=== PATIENT | female | born 1995 | race Caucasian/White ===

== ENCOUNTER 2019-03-04 22:29 | Emergency (ER) | payer BC ==
[~2019-03-04] VITALS: Ht 160 cm; Wt 61.9 kg
[2019-03-04 22:33] VITALS: Ht 160 cm; Wt 61.9 kg
[2019-03-05 00:44] LABS: UA SPECIFIC GRAVITY >1.030 (1.005-1.035)
[2019-03-05 00:45] LABS: microscopic required? YES; urine erythrocyte TRACE (NEGATIVE)
[2019-03-05 01:35] VITALS: BP 109/53
== END 2019-03-05 01:35 | disposition home or self-care (01) ==
LOC: ED 22:29
PROVIDERS: Emergency Medicine
DX: R51 Headache (principal); M54.2 Cervicalgia; R11.0 Nausea; R20.2 Paresthesia of skin; R05 Cough; R10.10 Upper abdominal pain, unspecified; R35.0 Frequency of micturition; G43.909 Migraine, unspecified, not intractable, without status migrainosus; Z88.0 Allergy status to penicillin
CPT/HCPCS: J1200; J2765

== ENCOUNTER 2019-04-08 12:49 | Emergency (ER) | payer BC ==
[~2019-04-08] VITALS: Ht 160 cm; Wt 62.6 kg
[2019-04-08 13:13] VITALS: Ht 160 cm; Wt 62.6 kg
[2019-04-08 14:06] VITALS: BP 103/52
== END 2019-04-08 14:06 | disposition home or self-care (01) ==
LOC: ED 12:49
DX: B34.9 Viral infection, unspecified (principal); R07.9 Chest pain, unspecified; R11.2 Nausea with vomiting, unspecified; J45.909 Unspecified asthma, uncomplicated; Z88.0 Allergy status to penicillin

== ENCOUNTER 2019-04-22 11:04 | Emergency (ER) | payer BC ==
[~2019-04-22] VITALS: Ht 160 cm; Wt 60.6 kg
[2019-04-22 11:45] VITALS: BP 129/72; Ht 160 cm; Wt 60.6 kg
[2019-04-22 13:37] LABS: microscopic required? NO
[2019-04-22 14:06] LABS: urine erythrocyte NEGATIVE (NEGATIVE)
[2019-04-22 14:10] LABS: PLATELET COUNT 203 x10^3mcL (130-400)
[2019-04-22 14:26] LABS: CALCIUM 9.4 mg/dL (8.5-10.1); CARBON DIOXIDE 27.6 mmol/L (21-32); CHLORIDE SERUM 105 mmol/L (98-107); CREATININE SERUM 0.7 mg/dL (0.6-1.0); GFR1 > 60 mL/min; GLUCOSE SERUM 117 mg/dL (74-106); POTASSIUM SERUM 4.5 mmol/L (3.5-5.1); SODIUM SERUM 141 mmol/L (136-145)
[2019-04-22 14:31] LABS: ALBUMIN 4.2 g/dL (3.4-5.0); ALKALINE PHOSPHATASE 73 U/L (46-116); ALT/SGPT 36 U/L (14-59); AST/SGOT 16 U/L (15-37); BILIRUBIN TOTAL 0.4 mg/dL (0.20-1.00); TOTAL PROTEIN, SERUM 7.7 g/dL (6.4-8.2)
[2019-04-22 14:47] LABS: BAND NEUTROPHIL 0 % (0-10); BASOPHIL 0 % (0-2); MONOCYTE 7 % (0-7); SEGMENTED NEUTROPHILS 70 % (37-75)
[2019-04-22 14:48] LABS: rbc morphology (normal/abnorm) NORMAL (NORMAL)
== END 2019-04-22 15:17 | disposition home or self-care (01) ==
LOC: ED 11:04
PROVIDERS: Emergency Medicine
DX: R53.1 Weakness (principal); R11.10 Vomiting, unspecified; R10.9 Unspecified abdominal pain; R11.0 Nausea; R68.83 Chills (without fever); J45.909 Unspecified asthma, uncomplicated; G43.909 Migraine, unspecified, not intractable, without status migrainosus; Z88.0 Allergy status to penicillin